=== PATIENT | female | born 1960 | race Caucasian/White ===

== ENCOUNTER 2017-01-28 20:08 | Emergency (ER) | payer BC ==
--- NOTE | ~2017-01-28 | CR72 ---
[facility] A Service of [facility] & [facility] RADIOLOGY TEXT RESULTS PATIENT: LUDWIN GOEL LOCATION: [facility] : 58 UNIT #: [id number] AGE: [address]: Geovanna Howard MD SEX: F ORDER DR: [id number] [facility] [address] [place], [place] [address] [id number] E MR#: [id number] Acc #: [id number] NAME: LUDWIN GOEL : 1960 SEX: F STUDY DATE/TIME: 01/28/2017 21:36 UNIT: [facility] ROOM: STUDY DESCRIPTION: CR Chest Single View Portable Attending Physician: Geovanna Howard M.D. Ordering Physician: Geovanna Howard M.D. Primary Care Physician: No Primary Care Physician MEDICAL IMAGING REPORT This report is preliminary unless electronic signature is present EXAM Portable chest. DATE OF EXAM 01/28/2017 INDICATIONS Dizziness, weakness, and shortness of air today. FINDINGS AP portable chest was obtained. No comparison. The heart is enlarged. The lungs are clear. Vascularity is normal. There is no pneumothorax. IMPRESSION Cardiomegaly. No active disease. Dictated by... Luciano Ly Jr., M.D. THIS IS AN ELECTRONICALLY VERIFIED REPORT Luciano Ly Jr., M.D. at 01/28/2017 11:06 PM TERRIE/tommy TD: 01/28/2017 22:51 JOB #: [id number] MEDICAL IMAGING REPORT Page 1 of 1 COPY
[2017-01-28 19:59] LABS: URINE SOURCE CLEAN CATCH
[2017-01-28 20:08] LABS: URINE APPEARANCE CLOUDY; URINE BILIRUBIN NEG (NEG); URINE BLOOD NEG (NEG); URINE COLOR YELLOW; URINE GLUCOSE >1000 MG/DL (NEG); URINE KETONE 1+ (NEG); URINE LEUKOCYTE ESTERASE 3+ (NEG); URINE NITRATE NEG (NEG); URINE PROTEIN TRACE (NEG); URINE SPECIFIC GRAVITY 1.017 (1.003-1.035); URINE UROBILINOGEN 0.2 MG/DL (NEG)
[2017-01-28 20:08] LABS: BASOPHIL# 0.1 X10e3 (0-0.3); BASOPHIL% 1.1 % (0-2.5); EOSINOPHIL# 0.1 X10e3 (0-0.7); EOSINOPHIL% 1.3 % (0.0-7.0); HEMATOCRIT 48.2 % (35.0-45.0); HEMOGLOBIN 16.3 gm/dL (12.0-16.0); LYMPHOCYTE# 1.7 X10e3 (1.0-3.5); LYMPHOCYTE% 20.3 % (17.0-45.0); MEAN CELL VOLUME 83.3 FL (83-96); MEAN CORPUSCULAR HEMOGLOBIN 28.1 PG (28-34); MEAN CORPUSCULAR HGB CONC 33.8 g/dL (30-36); MEAN PLATELET VOLUME 7.8 FL (6.5-11.5); MONOCYTE# 0.8 X10e3 (0-1.0); MONOCYTE% 9.8 % (3.0-12.0); NEUTROPHIL# 5.8 X10e3 (1.5-7.1); NEUTROPHIL% 67.5 % (40-75); PLATELET COUNT 309 X10e3 (140-420); RED BLOOD COUNT 5.78 X10e (3.90-5.30); RED CELL DISTRIBUTION WIDTH 13.6 % (11.0-15.5); WHITE BLOOD COUNT 8.6 X10e3 (4.0-10.5)
[~2017-01-28 20:08] MED LIST: CIPRO PO; SYNTHROID PO; VICODIN 5/500 T1 TAB PO; ZANTAC PO
[2017-01-28 20:09] LABS: DIFF IND NO
[2017-01-28 20:10] LABS: CULTURE INDICATED? YES; URBCS1 AUWI 0-2 /[HPF] (0-2); URINE BACTERIA AUWI 2+ (NEGATIVE); URINE SQUAMOUS EPITHELIAL CELL OCC /[HPF]; UWBCS1 AUWI 100-200 (0-5)
[2017-01-28 20:17] LABS: POC - CKMB <1.0 ng/mL (0.0-7.9); POC - TROPONIN <0.05 ng/mL (<=0.05)
[2017-01-28 20:19] LABS: URINE MUCUS PRESENT
[2017-01-28 20:39] LABS: ALBUMIN SERUM 3.6 g/dL (3.5-5.0); ALKALINE PHOSPHATASE 122 U/L (32-92); ALT (SGPT) 21 U/L (10-40); AST (SGOT) 23 U/L (10-42); BILIRUBIN, DIRECT 0.1 mg/dL (0.0-0.2); BILIRUBIN,INDIRECT 0.3 mg/dL (0.0-0.9); BILIRUBIN,TOTAL 0.4 mg/dL (0.2-2.0); BLOOD UREA NITROGEN <5 mg/dL (9-23); BUN/CREATININE RATIO 7.14; CALCIUM SERUM 8.7 mg/dL (8.4-10.2); CARBON DIOXIDE 25 mmol/L (22-31); CHLORIDE 101 mmol/L (100-111); CREATININE SERUM 0.7 mg/dL (0.6-1.4); GLOM FILT RATE Estimated 96.2 mL/min (>60); GLUCOSE FASTING 250 mg/dL (70-110); POTASSIUM 3.2 mmol/L (3.5-5.1); PROTEIN TOTAL SERUM 8.2 g/dL (6.0-8.3); SODIUM 138 mmol/L (135-145)
== END 2017-01-28 22:14 | disposition home or self-care (01) ==
LOC: CED 20:08
PROVIDERS: Student in an Organized Health Care Education/Training Program
DX: E86.0 Dehydration (principal); R73.9 Hyperglycemia, unspecified; N39.0 Urinary tract infection, site not specified; K21.9 Gastro-esophageal reflux disease without esophagitis; Z90.710 Acquired absence of both cervix and uterus; Z90.49 Acquired absence of other specified parts of digestive tract; Z88.0 Allergy status to penicillin; Z88.1 Allergy status to other antibiotic agents; Z79.899 Other long term (current) drug therapy
CPT/HCPCS: 36415; 71010; 80048; 80076; 81003; 82553; 84484; 85025; 87086; 96360; 99284; J0696